=== PATIENT | male | born 1975 | race Caucasian/White ===

== ENCOUNTER 2019-12-23 18:26 | Emergency (ER) | payer MEDICAID ==
[~2019-12-23] VITALS: Ht 170.2 cm; Wt 92.1 kg
[2019-12-23 18:37] VITALS: BP 175/95
[2019-12-23 20:56] VITALS: BP 135/80
== END 2019-12-23 20:57 | disposition home or self-care (01) ==
LOC: MED 18:26
DX: R10.32 Left lower quadrant pain (principal)
CPT/HCPCS: 76856; 81002; 99284; Q0092

== ENCOUNTER 2023-01-10 21:05 | Emergency (ER) | payer MEDICAID ==
[~2023-01-10] VITALS: Ht 165.1 cm; Wt 90.7 kg
[2023-01-10 21:10] VITALS: BP 137/75
--- NOTE | 2023-01-10 21:16 | NUR ---
TO BED 8 FOLLOWING TRIAGE
--- NOTE | 2023-01-10 21:18 | NUR ---
Patient resting in bed, A/Ox4, chest rise and fall symmetrical, no s/s of distress, on monitor.
[2023-01-10] MEDS ORDERED: IBUP-2213 PO (21:43)
[2023-01-10] MEDS ORDERED: KETOROLAC 30 MG/ML VIAL IM ONE (21:45)
[2023-01-10 21:59] VITALS: BP 127/85
== END 2023-01-10 22:01 | disposition home or self-care (01) ==
LOC: MED 21:05
DX: J02.9 Acute pharyngitis, unspecified (principal); Z79.1 Long term (current) use of non-steroidal anti-inflammatories (NSAID)
CPT/HCPCS: 96372; 99283; J1885